=== PATIENT | female | born 1945 | race Caucasian/White ===

== ENCOUNTER 2021-11-26 19:05 | Emergency (ER) | payer MEDICARE, BC ==
[~2021-11-26] VITALS: Ht 165.1 cm; Wt 59.0 kg
[2021-11-26] MEDS ORDERED: ATOR10TA PO (19:25)
[2021-11-26] MEDS ORDERED: ASPI-612 PO (19:25)
[2021-11-26] MEDS ORDERED: ONDANSETRON ODT 4 MG TAB.RAPDIS SL ONE (19:45)
[2021-11-26] MEDS ORDERED: ONDANSETRON ODT 4 MG TAB.RAPDIS ONE (19:58)
--- NOTE | 2021-11-26 20:01 | NUR ---
Hernandez tolliver in EDM - 11/26/21 at 2006 by JOE Pt. admitted to Med/Surg, under care of Milena Neville List completed
--- NOTE | 2021-11-26 20:58 | NUR ---
Patient discharged to home in stable condition. Written and verbal after care instructions given. Patient verbalizes understanding of instructions. Stressed follow up or return to ER for worsening s/s.
[2021-11-26 20:59] VITALS: BP 164/88
== END 2021-11-26 21:02 | disposition home or self-care (01) ==
LOC: ER 19:10
DX: S00.03XA Contusion of scalp, initial encounter (principal); S50.02XA Contusion of left elbow, initial encounter; M54.2 Cervicalgia; E78.5 Hyperlipidemia, unspecified; Z88.2 Allergy status to sulfonamides; Z79.82 Long term (current) use of aspirin; Z79.899 Other long term (current) drug therapy; W01.0XXA Fall on same level from slipping, tripping and stumbling without subsequent striking against object, initial encounter; Y93.89 Activity, other specified; Y92.89 Other specified places as the place of occurrence of the external cause; Y99.8 Other external cause status
CPT/HCPCS: 70450; 72125; 73080; A4663; Q0162